=== PATIENT | female | born 1960 | race Caucasian/White ===

== ENCOUNTER 2020-08-05 03:07 | Inpatient (IN) | payer OTHER, MEDICAID ==
[~2020-08-05] VITALS: Ht 157.5 cm; Wt 68.9 kg
[2020-08-05] MEDS ORDERED: ONDANSETRON HCL 4 MG/2 ML VIAL IV ONE (03:45)
[2020-08-05] MEDS ORDERED: LORazepam 0.5 MG TAB PO ONE (03:45)
[2020-08-05] MEDS ORDERED: NITROGLYCERIN 0.2MG/HR TOPICAL PATCH TD ONE (03:45)
[2020-08-05 04:31] LABS: Basophils # (auto) 0.1 10 ^3/uL (0-0.2); Basophils % (auto) 0.8 % (0.0-2.0); Eosinophils # (auto) 0.3 10 ^3/uL (0-0.8); Hematocrit 40.1 % (36.0-46.0); Hemoglobin 13.4 g/dL (12.2-16.2); Lymphocytes # (auto) 2.2 10 ^3/uL (0.4-5.4); Lymphocytes % (auto) 32.8 % (10.0-50.0); Mean Corpuscular Hemoglobin 28.3 pg (28.0-32.0); Mean Corpuscular Hgb Conc. 33.5 g/dL (32.0-36.0); Mean Corpuscular Volume 84.7 fL (80.0-100.0); Monocytes # (auto) 0.6 10 ^3/uL (0-1.3); Monocytes % (auto) 9.4 % (0.0-12.0); Neutrophils # (auto) 3.5 10 ^3/uL (1.6-8.6); Platelet Count (auto) 323 10^3/uL (140-450); Red Blood Cells 4.73 10^6/uL (4.0-5.20); Red Cell Distribution Width 14.1 % (11.8-14.3); White Blood Cell 6.6 10^3/uL (4.4-10.8)
[2020-08-05 04:46] LABS: INR 0.97 (0.9-1.15); Partial Thromboplastin Time 25.8 sec (23.0-31.2)
[2020-08-05 04:52] LABS: Albumin 3.5 g/dL (3.4-5.0); Anion Gap 8 (5-15); Blood Urea Nitrogen 14 mg/dL (7-18); Calcium 8.1 mg/dL (8.5-10.1); Carbon Dioxide 24 mmol/L (21-32); Chloride 108 mmol/L (98-107); Glucose 97 mg/dL (74-106); Magnesium 2.2 mg/dL (1.6-2.6); Potassium 3.5 mmol/L (3.5-5.1); Sodium 140 mmol/L (136-145)
[2020-08-05 04:57] LABS: Alanine Aminotransferase 21 U/L (13-56); Alkaline Phosphatase 134 U/L (45-117); Aspartate Aminotransferase 15 U/L (15-37); BUN/Creatinine Ratio 20.3; Bilirubin, Total 0.2 mg/dL (0.2-1.0); GFR African American 112 mL/min; GFR Non-African American 93 mL/min
[2020-08-05] MEDS ORDERED: MORPHINE SULFATE 4 MG/ML SYR/VIAL IV PRN (08:15)
[2020-08-05] MEDS ORDERED: ONDANSETRON HCL 4 MG/2 ML VIAL IV PRN (08:15)
[2020-08-05] MEDS ORDERED: DOCUSATE SOD 100 MG CAP PO PRN (08:15)
[2020-08-05] MEDS ORDERED: MORPHINE SULF INJ 2 MG/ML SYRINGE 1ML IV PRN (08:15)
[2020-08-05] MEDS ORDERED: ACETAMINOPHEN 325 MG TAB PO PRN (08:15)
[2020-08-05 08:32] LABS: Basophils # (auto) 0 10 ^3/uL (0-0.2); Basophils % (auto) 0.9 % (0.0-2.0); Eosinophils # (auto) 0.1 10 ^3/uL (0-0.8); Eosinophils % (auto) 2.5 % (0.0-7.0); Hematocrit 38.4 % (36.0-46.0); Hemoglobin 12.9 g/dL (12.2-16.2); Lymphocytes # (auto) 2.2 10 ^3/uL (0.4-5.4); Mean Corpuscular Hemoglobin 28.5 pg (28.0-32.0); Mean Corpuscular Hgb Conc. 33.7 g/dL (32.0-36.0); Mean Corpuscular Volume 84.6 fL (80.0-100.0); Monocytes # (auto) 0.5 10 ^3/uL (0-1.3); Neutrophils # (auto) 2.9 10 ^3/uL (1.6-8.6); Neutrophils % (auto) 50.6 % (37.0-80.0); Nucleated Red Blood Cells % 0.1 %; Platelet Count (auto) 308 10^3/uL (140-450); Red Blood Cells 4.53 10^6/uL (4.0-5.20); White Blood Cell 5.7 10^3/uL (4.4-10.8)
[2020-08-05 08:49] LABS: BUN/Creatinine Ratio 17.5; Calcium 8.2 mg/dL (8.5-10.1); Potassium 4.3 mmol/L (3.5-5.1)
[2020-08-05] MEDS: NITROGLYCERIN 0.4 MG SL TAB SL PRN (09:52)
[2020-08-05] MEDS: PANTOPRAZOLE 40 MG/10 ML VIAL INJ IV SCH (11:12)
[2020-08-05] MEDS ORDERED: ACYC5OIN EX (12:14)
[2020-08-05] MEDS ORDERED: DICL1GEL50 TD (12:14)
[2020-08-05] MEDS ORDERED: ALBUAER3 IN (12:14)
[2020-08-05] MEDS ORDERED: HYDRX10T PO (12:14)
[2020-08-05] MEDS ORDERED: LORA-205 PO (12:14)
[2020-08-05] MEDS ORDERED: ACYC-163 PO (12:14)
[2020-08-05] MEDS ORDERED: GABA300C10 PO (12:14)
[2020-08-05] MEDS ORDERED: LISI-648 PO (12:14)
[2020-08-05] MEDS ORDERED: FLUT1SPR9 (12:14)
[2020-08-05] MEDS: SODIUM CHLOR 0.9% PF (SALINE LOCK) 10ML VIAL/SYR IV SCH ×2 (14:00→22:00)
--- NOTE | 2020-08-05 17:23 | NUR ---
PATIENT ARRIVED TO UNIT PATIENT ALERT AND ORIENTED X4 DENIES ALL PAIN SOB AND DISTRESS AT THIS TIME PATIENT ORIENTED TO UNIT STAFF POC PATIENT VERBALIZED UNDERSTANDING.PATIENT HAD MEDICATIONS AT BEDSIDE. MEDICATIONS OBTAINED AND SENT TO PHARMACY, P0M WRIST BAND GIVEN TO PATIENT. BED IN LOWEST LOCKED POSITION CALL LIGHT WITHIN REACH WILL CONTINUE TO MONITOR
[2020-08-05 17:36] VITALS: BP 138/82
--- NOTE | 2020-08-05 18:30 | NUR ---
CALLED DIETARY PATIENT DID NOT RECEIVE DINNER VENICE LEFT MESSAGE AT DIETARY
--- NOTE | 2020-08-05 21:00 | NUR ---
patient Eugenia on bed looked tired so nurse spoke to neighbor quietly who was asking for medications.
[2020-08-05 22:00] VITALS: BP 122/69
--- NOTE | 2020-08-06 03:00 | NUR ---
checked on random rounds, patient comfortably sleeping on bed covered with thick blankets. running on normal sinus rhythm.
[2020-08-06 05:00] VITALS: BP 126/76
--- NOTE | 2020-08-06 05:15 | NUR ---
noted patient's vitals are ideally normal.
[2020-08-06 06:32] LABS: Basophils # (auto) 0 10 ^3/uL (0-0.2); Basophils % (auto) 0.8 % (0.0-2.0); Eosinophils # (auto) 0.3 10 ^3/uL (0-0.8); Eosinophils % (auto) 4.9 % (0.0-7.0); Hematocrit 40.3 % (36.0-46.0); Hemoglobin 13.6 g/dL (12.2-16.2); Lymphocytes # (auto) 2.1 10 ^3/uL (0.4-5.4); Lymphocytes % (auto) 39.8 % (10.0-50.0); Mean Corpuscular Hemoglobin 28.5 pg (28.0-32.0); Mean Corpuscular Hgb Conc. 33.7 g/dL (32.0-36.0); Mean Corpuscular Volume 84.5 fL (80.0-100.0); Monocytes # (auto) 0.5 10 ^3/uL (0-1.3); Monocytes % (auto) 9.9 % (0.0-12.0); Neutrophils # (auto) 2.3 10 ^3/uL (1.6-8.6); Neutrophils % (auto) 44.6 % (37.0-80.0); Nucleated Red Blood Cells % 0.1 %; Platelet Count (auto) 284 10^3/uL (140-450); Red Blood Cells 4.77 10^6/uL (4.0-5.20); Red Cell Distribution Width 14.2 % (11.8-14.3); White Blood Cell 5.2 10^3/uL (4.4-10.8)
[2020-08-06 06:45] LABS: Albumin 3.3 g/dL (3.4-5.0); Calcium 8.7 mg/dL (8.5-10.1)
[2020-08-06 06:48] LABS: BUN/Creatinine Ratio 17.7; Bilirubin, Total 0.4 mg/dL (0.2-1.0); Total Protein 6.5 g/dL (6.4-8.2)
--- NOTE | 2020-08-06 07:40 | NUR ---
went to the room saw patient dressed up wanted to go home. requested for her personal home medications she deposited with pharmacy. Retrieved complete medications and patient signed them out. talked patient down and apologized for not giving pain medication on time. but patient talked unpleasantly to nurse. discontinued peripheral access per patient request. after few minutes she asked for pain medication, explained to her that her pain meds are via IV and she became more upset. stated "nurses are getting money for not doing anything". patient left ama signed ama document.
--- NOTE | 2020-08-06 08:45 | NUR ---
Assumed care of patient at this time, per house raysa Cuellar patient allowed back to room after pt had already signed AMA earlier this morning. Order for tele monitor sent to ICU and waiting monitor at this time, pt requesting "IV pain medication" at this time stating CP, will start new IV site as IV was already d/c'd earlier per Noc rn. Patient laying comfortably in bed no acute distress or sob noted. VSS BP 133/89 HR 65 RR 16 O2 97% on room air, T 98.6. Will cont to monitor. 0800 interventions completed at this time but charted for 0800 since pt care was just assumed at this time.
[2020-08-06] MEDS: PANTOPRAZOLE 40 MG/10 ML VIAL INJ IV SCH (09:18)
--- NOTE | 2020-08-06 09:22 | NUR ---
Tele # [id number] received from [employer] at this time and placed on patient . Rhythm SR hr 69. Cont to monitor
[2020-08-06] MEDS ORDERED: IBUPROFEN 400 MG TAB PO ONE (11:30)
--- NOTE | 2020-08-06 11:47 | NUR ---
Patient c/o headache, medicated as ordered with Motrin per Doctor . Cont to monitor
[2020-08-06] MEDS: NITROGLYCERIN 0.4 MG SL TAB SL PRN ×2 (12:11→12:16)
--- NOTE | 2020-08-06 12:11 | NUR ---
C/O CP Patient c/o cp states "pressure-like pain". Patient medicated with Nitro as ordered. After second dose of nitro patient refusing any more stating chest pressure is getting worse and now feeling "tingling and headache". VSS, last BP after administration of nitro x2 is 119/71 hr 68. This rn Spoke to Dr Beavers and updated on status including patient requesting IV meds stating that morphine "is not helping" Per MD Beavers, do not medicate with IV narcs at this time, and awaiting cardio consult. Patient states she will leave AMA "again and go to a different hospital where they will pay attention to me, my daughter is a Doctor at [facility]." No acute distress noted at this time. Cont to monitor
--- NOTE | 2020-08-06 12:47 | NUR ---
Patient states headache is now gone but "chest pressure" is still there 05/10. Awaiting cardio consult, per MD Beavers do not medicate with IV narcotics. Patient refused PO pain meds. Cont care
[2020-08-06] MEDS ORDERED: IPRATROPIUM BROM 0.5 MG/2.5ML INH SOL NEB PRN (13:00)
[2020-08-06] MEDS ORDERED: ALBUTEROL SULF 2.5 MG/0.5ML(0.5%) NEB SOLN NEB PRN (13:00)
[2020-08-06] MEDS ORDERED: LORazepam 0.5 MG TAB PO PRN (13:00)
[2020-08-06 13:08] VITALS: BP 136/107
[2020-08-06 14:42] LABS: Alcohol, Urine < 3.0 mg/dL (0-10); Amphetamine Screen, Urine NEGATIVE (NEGATIVE); Barbiturate Scree,Urine NEGATIVE (NEGATIVE); Benzodiazephine Screen, Urine NEGATIVE (NEGATIVE); Cannabinoid Screen, Urine NEGATIVE (NEGATIVE); Cocaine Screen, Urine NEGATIVE (NEGATIVE); Opiate Scree,Urine POSITIVE (NEGATIVE); Phencyclidine Screen, Urine NEGATIVE (NEGATIVE)
--- NOTE | 2020-08-06 15:26 | NUR ---
Cardio at bedside MD Ely at bedside, speaking to patient extensively regarding POC, status, treatment including LHC plan for tomorrow. Patient agrees for LHC as ordered. Per MD Ely dc all Morphine pain meds and if needed give Toradol 30 mg IV Q6hr for severe pain. Patient verbalized understanding. House sup notified and she will inform chemical laboratory technician for procedure at 0700 tomorrow.
[2020-08-06] MEDS ORDERED: KETOROLAC TROMETH 30 MG/ML 1ML VIAL IV PRN (15:45)
--- NOTE | 2020-08-06 16:16 | NUR ---
AMA Note NOEMÍ CHEW states they want to leave the hospital Against Medical Advice (AMA). Patient encouraged to stay for further treatment/stabilization. MD Beavers notified of patient's wishes. Patient advised of the risks of leaving AMA including and not limited to . Patient verbalized understanding. supervisor lace tearing Krysta at bedside. Patient encouraged to return to the ER if symptoms do not improve or worsen. Patient refused wheelchair and ambulated independently with all personal belongings stating her daughter is coming to get her and she "will never come back to this hospital ever again!". No distress or sob noted on departure. MD Ely notified of pt leaving AMA. Tele monitor returned to ICU and Carmen notified
[2020-08-06] MEDS ORDERED: ATORVASTATIN 20 MG TAB PO SCH (22:00)
[2020-08-07] MEDS ORDERED: ASPirin-EC 81 mg tab PO SCH (10:00)
[2020-08-07] MEDS ORDERED: LISINOPRIL 10 MG TAB PO SCH (10:00)
[2020-08-08 09:01] LABS: Hepatitis B Surface Antibody Positive
[2020-08-08 09:36] LABS: Hepatitis A Total Antibody Negative
[2020-08-08 11:01] LABS: Hepatitis B Surface Antigen Negative (Negative); Hepatitis C Antibody Negative (Negative)
[2020-08-08 11:18] LABS: Hepatitis B Core Total AB Positive
== END 2020-08-06 16:14 | disposition left against medical advice (07) | DRG 313 ==
LOC: EDBD 03:07 → ER 03:11 → TELE 03:12 → TELE-WESTW 18:09
PROVIDERS: ADMIT Nurse Practitioner Family; ATTEND Internal Medicine
DX: R07.89 Other chest pain (principal); Z20.828 Contact with and (suspected) exposure to other viral communicable diseases; Z53.29 Procedure and treatment not carried out because of patient's decision for other reasons; F41.9 Anxiety disorder, unspecified; F32.9 Major depressive disorder, single episode, unspecified; I10 Essential (primary) hypertension; Z87.891 Personal history of nicotine dependence
CPT/HCPCS: 36415; 71045; 80048; 80053; 80307; 83735; 83880; 84484; 85025; 85610; 85730; 86704; 86706; 86708; 86803; 87340; 87426; 93005; 93306; 96374; 96375; C9113; G0378; J2405